=== PATIENT | male | born 1990 | race Hispanic/Latino ===

== ENCOUNTER 2017-12-16 17:20 | Emergency (ER) | payer OTHER ==
[2017-12-16 17:32] VITALS: BMI 29.0
[2017-12-16] MEDS ORDERED: Sodium Chloride 0.9% 1,000 ML IV STA (17:43)
--- NOTE | 2017-12-16 18:18 | ED PDOC ---
Arrival/HPI <EmersonGuille - Last Filed: 12/16/17 18:17> - General Historian: Patient <Cesar Sanchez Natividad - Last Filed: 12/16/17 20:10> - General Chief Complaint: Flu-like Symptoms Time Seen by Provider: 12/16/17 17:42 - History of Present Illness Narrative History of Present Illness (Text): 12/16/17 19:59 27yo male with no pmhx who present with complaint of sore throat, subjective fever, nasal congestion, mild nonproductive cough, nausea, vomiting x 3days. States he was seen at Urgent care today and was given Augmentin and Promethazine for Sinusitis/cough. States he came to ED because he vomited twice and feels nauseous. He denies sick contact, travel, chest pain, abdominal pain, urinary symptoms, SOB, any other complaint. (Cesar Sanchez) Past Medical History - Provider Review Nursing Documentation Reviewed: Yes - Cardiac Hx Cardiac Disorders: No - Pulmonary Hx Respiratory Disorders: Yes Hx Pneumonia: Yes (7 year ago) - Psychiatric Hx Substance Use: No - Surgical History Hx Tonsillectomy: Yes - Anesthesia Hx Anesthesia: Yes Hx Anesthesia Reactions: No Hx Malignant Hyperthermia: No <EmersonGuille - Last Filed: 12/16/17 18:17> - Provider Review Nursing Documentation Reviewed: Yes <Cesar Sanchez Natividad - Last Filed: 12/16/17 20:10> Family/Social History - Physician Review Nursing Documentation Reviewed: Yes Smoking Status: Never Smoked Hx Alcohol Use: Yes Frequency of alcohol use: Socially Hx Substance Use: No <EmersonGuille - Last Filed: 12/16/17 18:17> - Physician Review Nursing Documentation Reviewed: Yes Family/Social History: Unknown Family HX <Cesar Sanchez A - Last Filed: 12/16/17 20:10> Allergies/Home Meds <Guille Norman - Last Filed: 12/16/17 18:17> <Cesar Sanchez A - Last Filed: 12/16/17 20:10> Allergies/Adverse Reactions: Allergies No Known Allergies Allergy (Verified 12/16/17 17:23) Home Medications: Home Meds Medication Instructions Recorded Confirmed Amoxicillin/Clavulanate [Augmentin 1 tab PO BID 12/16/17 12/16/17 875 MG-125 MG] Promethazine DM [Phenergan DM 5 ml PO Q6 12/16/17 12/16/17 Syrup] Review of Systems - Physician Review All systems were reviewed & negative as marked: Yes <Guille Norman Last Filed: 12/16/17 18:17> - Physician Review All systems were reviewed & negative as marked: Yes - Review of Systems Constitutional: Normal Eyes: Normal ENT: Sore Throat, Sinus Congestion Respiratory: Cough. absent: SOB, Sputum, Wheezing Cardiovascular: Normal Gastrointestinal: Nausea, Vomiting. absent: Abdominal Pain, Constipation, Diarrhea, Hematochezia, Hematemesis Genitourinary Male: Normal Musculoskeletal: Normal Skin: Normal Neurological: Normal Endocrine: Normal Hemo/Lymphatic: Normal Psychiatric: Normal <DiruXicepta SciencesHappiness Filed: 12/16/17 20:10> Physical Exam Vital Signs Reviewed: Yes Temperature: Afebrile Blood Pressure: Normal Pulse: Regular Respiratory Rate: Normal <Guille Norman Filed: 12/16/17 18:17> Vital Signs Reviewed: Yes Temperature: Afebrile Blood Pressure: Normal Pulse: Regular Respiratory Rate: Normal Appearance: Positive for: Well-Appearing, Non-Toxic, Comfortable Pain Distress: None Mental Status: Positive for: Alert and Oriented X 3 - Systems Exam Head: Present: Atraumatic, Normocephalic Pupils: Present: PERRL Extroacular Muscles: Present: EOMI Conjunctiva: Present: Normal Mouth: Present: Moist Mucous Membranes Neck: Present: Normal Range of Motion Respiratory/Chest: Present: Clear to Auscultation, Good Air Exchange. No: Respiratory Distress, Accessory Muscle Use, Wheezes, Decreased Breath Sounds, Rales, Retracting, Rhonchi Cardiovascular: Present: Regular Rate and Rhythm, Normal S1, S2. No: Murmurs Abdomen: Present: Other (Soft). No: Tenderness, Distention, Peritoneal Signs, Rebound, Guarding, McBurney's Point Tender, Rovsing's Sign Present Back: Present: Normal Inspection Upper Extremity: Present: Normal Inspection. No: Cyanosis, Edema Lower Extremity: Present: Normal Inspection. No: Edema Neurological: Present: GCS=15, CN II-XII Intact, Speech Normal Skin: Present: Warm, Dry, Normal Color. No: Rashes Psychiatric: Present: Alert, Oriented x 3, Normal Insight, Normal Concentration <Diru,Happiness A - Last Filed: 12/16/17 20:10> Vital Signs Temp Pulse Resp BP Pulse Ox 12/16/17 17:24 98.3 F 89 18 132/75 98 - Lab Interpretations Lab Results: 12/16/17 18:10 12/16/17 18:10 Lab Results 12/16/17 18:10: Sodium 141, Potassium 4.3, Chloride 104, Carbon Dioxide 26, Anion Gap 16, BUN 16, Creatinine 0.9, Est GFR ( Amer) > 60, Est GFR (Non- Af Amer) > 60, Random Glucose 117 H, Calcium 9.3, Magnesium 2.2, Total Bilirubin 0.6, AST 37, ALT 42, Alkaline Phosphatase 77, Total Protein 7.9, Albumin 4.8, Globulin 3.1, Albumin/Globulin Ratio 1.5, Lipase 62 12/16/17 18:10: Urine Color Yellow, Urine Appearance Clear, Urine pH 7.5, Ur Specific [place] 1.015, Urine Protein 30 H, Urine Glucose (UA) Negative, Urine Ketones Negative, Urine Blood Negative, Urine Nitrate Negative, Urine Bilirubin Negative, Urine Urobilinogen 0.2, Ur Leukocyte Esterase Negative, Urine RBC Negative, Urine WBC Negative, Ur Epithelial Cells None, Urine Bacteria Neg 12/16/17 18:10: PT 12.4, INR 1.09, APTT 31.8 12/16/17 18:10: WBC 8.6, RBC 5.43, Hgb 16.3, Hct 46.9, MCV 86.4, MCH 30.0, MCHC 34.8, RDW 13.0, Plt Count 192, MPV 9.4, Gran % 79.4 H, Lymph % (Auto) 11.2 L, [place] % (Auto) 8.3 H, Eos % (Auto) 1.0 L, Baso % (Auto) 0.1, Gran # 6.82 H, Lymph # (Auto) 1.0 L, [place] # (Auto) 0.7 H, Eos # (Auto) 0.1, Baso # (Auto) 0.01 - Medication Orders Current Medication Orders: Discontinued Medications Famotidine (Pepcid) 20 mg IVP STAT STA Stop: 12/16/17 17:44 Last Admin: 12/16/17 18:36 Dose: 20 mg IVP Administration Document 12/16/17 18:36 SF (Rec: 12/16/17 18:36 [id number] Charges for Administration # of IVP Administrations 1 Sodium Chloride (Sodium Chloride 0.9%) 1,000 mls @ 1,000 mls/hr IV .Q1H STA Stop: 12/16/17 18:42 Last Admin: 12/16/17 18:35 Dose: 1,000 mls/hr eMAR Start Stop Document 12/16/17 18:35 SF (Rec: 12/16/17 18:36 [place] [id number]) Intravenous Solution Start Date 12/16/17 Start Time 18:35 End Date 12/16/17 End time 19:35 Total Infusion Time 60 Ondansetron HCl (Zofran Inj) 4 mg IVP STAT STA Stop: 12/16/17 17:44 Last Admin: 12/16/17 18:36 Dose: 4 mg IVP Administration Document 12/16/17 18:36 SF (Rec: 12/16/17 18:36 [place] [id number]) Charges for Administration # of IVP Administrations 1 Disposition/Present on Arrival - Present on Arrival History of DVT/PE: No History of Uncontrolled Diabetes: No Urinary Catheter: No History of Decub. Ulcer: No History Surgical Site Infection Following: None <Guille Norman - Last Filed: 12/16/17 18:17> - Present on Arrival Any Indicators Present on Arrival: No History of DVT/PE: No History of Uncontrolled Diabetes: No Urinary Catheter: No History of Decub. Ulcer: No History Surgical Site Infection Following: None - Disposition Have Diagnosis and Disposition been Completed?: Yes Disposition Time: 20:10 Patient Plan: Discharge <Cesar Sanchez - Last Filed: 12/16/17 20:10> - Disposition Diagnosis: Viral syndrome Disposition: HOME/ ROUTINE Condition: STABLE Discharge Instructions (ExitCare): Nausea and Vomiting, Adult (DC), Viral Upper Respiratory Infection, Adult (DC) Additional Instructions: Follow up with your Doctor/clinic Drink plenty of fluid and rest Return to ED for any new or worsening symptoms Prescriptions: Ondansetron ODT [Zofran ODT] 4 mg PO Q6 #7 odt Referrals: Aimee Cintron MD [Staff Provider] - Follow up with primary Forms: [employer] ([place])
[2017-12-16 18:26] LABS: BASO # 0.01 K/mm3 (0.0-2.0); BASO % 0.1 % (0.0-3.0); EOS # 0.1 (0.0-0.7); GRAN # 6.82 (1.4-6.5); GRAN % 79.4 % (50.0-68.0); HEMOGLOBIN 16.3 g/dL (14.0-18.0); LYMPH % 11.2 % (22.0-35.0); MEAN CELL VOLUME 86.4 fl (80.0-105.0); MEAN CORPUSCULAR HGB CONC 34.8 g/dl (31.0-37.0); MEAN PLATELET VOLUME 9.4 fl (7.0-11.0); MONO # 0.7 (0.1-0.6); MONO % 8.3 % (1.0-6.0); RBC 5.43 10^6/uL (3.5-6.1); WHITE BLOOD COUNT 8.6 10^3/ul (4.5-11.0)
[2017-12-16 18:32] LABS: INR 1.09; PARTIAL THROMBOPLASTIN TIME 31.8 Seconds (25.1-36.5); PROTHROMBIN TIME 12.4 SECONDS (9.4-12.5)
[2017-12-16 18:44] LABS: ALB/GLOB RATIO 1.5 (1.1-1.8); ALBUMIN 4.8 g/dL (3.0-4.8); ALT/SGPT 42 U/L (7-56); AST/SGOT 37 U/L (17-59); BLOOD UREA NITROGEN 16 mg/dL (7-21); CALCIUM 9.3 mg/dL (8.4-10.5); GFR AFRICAN-AMERICAN > 60; GFR NON-AFRICAN AMERICAN > 60; LIPASE 62 U/L (23-300)
[2017-12-16 19:08] LABS: PH,URINE 7.5 (4.7-8.0); URINE BILIRUBIN NEGATIVE (NEGATIVE); URINE BLOOD NEGATIVE (NEGATIVE); URINE GLUCOSE (UA) NEGATIVE (NEGATIVE); URINE LEUKOCYTE ESTERASE NEGATIVE Leu/uL (NEGATIVE); URINE PROTEIN 30 mg/dL (<30 mg/dL); URINE UROBILINOGEN 0.2 E.U./dL (<1 E.U./dL)
[2017-12-16 19:09] LABS: URINE APPEARANCE CLEAR (CLEAR); URINE COLOR YELLOW (YELLOW)
[2017-12-16 19:17] LABS: URINE BACTERIA NEG (NEG); URINE RBC NEGATIVE /hpf (0-2); URINE WBC NEGATIVE /hpf (0-6)
[2017-12-16 20:07] VITALS: BP 125/64; PULSE 72; RESP 16; TEMP 98.4; O2SAT 100
== END 2017-12-16 20:20 | disposition home or self-care (01) ==
LOC: ED 17:20 → MERGE 17:20 → ED 20:20
DX: B34.9 Viral infection, unspecified (principal)
CPT/HCPCS: 80053; 81001; 83690; 83735; 85025; 85610; 85730; 96361; 96374; 96375; 99284; J2405; J7030